=== PATIENT | male | born 1995 | race Two or more races ===

== ENCOUNTER 2019-02-24 21:13 | Emergency (ER) | payer MEDICAID ==
[~2019-02-24] VITALS: Ht 170.2 cm; Wt 61.2 kg
--- NOTE | 2019-02-24 21:25 | NUR ---
Patient came for generalized rashes over body that was not treated with benadryl. Started about 6 days ago. Respiratory even and unlabored, no cough no sob. No GI/ distress. Patient in bed at lowest position, sr upx2, call light within reach. Fall precautions implemented per protocol.
--- NOTE | 2019-02-24 21:43 | NUR ---
Patient discharged to home in stable conditon. Written and verbal after care instructions given. Patient verbalizes understanding of instructions. Patient ambulated with stable gait.
[2019-02-24 21:44] VITALS: BP 110/61
== END 2019-02-24 21:50 | disposition home or self-care (01) ==
LOC: ER 21:14
DX: L74.0 Miliaria rubra (principal)
CPT/HCPCS: A4663